=== PATIENT | male | born 1955 | race Caucasian/White ===

== ENCOUNTER 2017-10-07 12:28 | Emergency (ER) | END 2017-10-07 14:08 | disposition home or self-care (01) ==

== ENCOUNTER 2018-12-21 08:14 | Emergency (ER) | payer SELFPAY ==
[~2018-12-21] VITALS: Wt 89.9 kg
[~2018-12-21 08:14] MED LIST: AMOX500C2 PO; CEPH-443 PO; CLOT30CR24 TOP; IBUP-1542 PO; IBUP-1561 PO
[2018-12-21] MEDS ORDERED: HYDROmorphONE 2 MG/ML SYG IV STA ×2 (08:33→09:09)
[2018-12-21] MEDS ORDERED: ONDANSETRON 4 MG INJ IV STA (08:33)
[2018-12-21] MEDS ORDERED: PROPOFOL 200 MG INJ IV STA (09:35)
[2018-12-21 11:00] VITALS: BP 139/89; PULSE 79; RESP 15
== END 2018-12-21 11:23 | disposition home or self-care (01) ==
LOC: E/R 08:14
DX: S43.004A Unspecified dislocation of right shoulder joint, initial encounter (principal); W18.39XA Other fall on same level, initial encounter; Y92.9 Unspecified place or not applicable
CPT/HCPCS: 23650; 73030; 73060; 73090; 94770; 96374; 96375; 96376; 99285; J1170; J2405